=== PATIENT | female | born 1955 | race Two or more races ===

== ENCOUNTER → 2024-08-21 | Outpatient (CLI) | payer MEDICARE, MEDICAID, SELFPAY ==
--- NOTE | 2024-08-21 14:30 | XR_ITS ---
Examination: CT abdomen and pelvis without contrast. Coronal 3-D reconstructions. Sagittal 2-D reconstructions. Date and time of exam:August 21, 2024 1325 hours Comparison February 23, 2023 INDICATIONS: History flank pain kidney stones urinary tract infections beginning 2 years ago CTDI: vol (mGy): 9.49 DLP: (mGycm): 509 Technique: Axial images of the abdomen have been obtained, 3 mm slice thickness Intravenous contrast material has not been administered. Low dose protocols were performed. One or more of the following dose reduction techniques were used; automated exposure control, adjustment of the mA and/or KV according to patient size, use of iterative reconstruction technique. Findings: No focal liver or splenic lesion Gallbladder not visualized Again noted 25 mm hypodense mass body of the pancreas Mild enlargement left adrenal gland Mild to moderate bilateral renal parenchymal scar formation 2 mm mid to lower pole right renal calculus 20 mm right renal cyst with tiny calcification in the wall of the cyst No hydronephrosis or ureteral calculi No pericecal inflammatory change No bowel obstruction Mildly fluid distended small bowel loops Atrophic uterus No bladder mass or bladder calculi Prominent osteopenia IMPRESSION: 25 mm hypodense mass body the pancreas, recommend MRI abdomen pancreas follow-up pre and postcontrast Mild to moderate bilateral renal parenchymal scar formation, no hydronephrosis or ureteral calculi
== END | disposition home or self-care (01) ==
LOC: CCTX 12:55
PROVIDERS: Referring Provider Urology; Visit Provider Urology
DX: R19.09 Other intra-abdominal and pelvic swelling, mass and lump (principal); N28.89 Other specified disorders of kidney and ureter
CPT/HCPCS: 74176

== ENCOUNTER → 2024-08-27 | Outpatient (BNVA) | payer MEDICARE, MEDICAID, SELFPAY | END | disposition home or self-care (01) | PROVIDERS: PCP Nurse Practitioner Family; Referring Provider Nurse Practitioner Family; Visit Provider Urology | DX: N35.92 Unspecified urethral stricture, female (principal); D41.4 Neoplasm of uncertain behavior of bladder; R10.2 Pelvic and perineal pain; Z87.440 Personal history of urinary (tract) infections; I10 Essential (primary) hypertension; E78.00 Pure hypercholesterolemia, unspecified; E11.9 Type 2 diabetes mellitus without complications; E03.9 Hypothyroidism, unspecified; N28.1 Cyst of kidney, acquired | CPT/HCPCS: 52214; 81003; 96372; A4217; A4649; C1894; J1580; A9270 ==

== ENCOUNTER → 2024-10-30 | Outpatient (CLI) | payer MEDICARE, MEDICAID, SELFPAY ==
--- NOTE | 2024-10-30 08:30 | XR_ITS ---
Examination: MRI abdomen with intravenous contrast. MRI abdomen without intravenous contrast. Date and time of exam: October 30, 2024 0920 hours INDICATIONS: CT abdomen study August 21, 2024 25 mm hypodense mass body of the pancreas mild enlargement left adrenal gland 2 mm mid to lower pole right renal calculus Technique: Multiple axial, sagittal and coronal sections of the abdomen obtained. Transverse images, TR 6020, TE 107. T1 weighted transverse images, TR 582, TE 9.5. T2-weighted sagittal images, TR 4000, TE 105. T2-weighted sagittal images, TR 4000, TE 5. Coronal images, TR 4210, TE 107. Axial and coronal images are obtained post 19 cc intravenous injection, gadolinium. Findings: No focal liver lesions Absent gallbladder Common hepatic duct 10 mm Spleen is not enlarged Nonenhancing cystic mass in the body of the pancreas, 29 x 22 mm No ascites No hydronephrosis Bilateral renal cysts, the cyst in the posterior lateral margin left kidney has irregular margins measuring 15 mm without enhancement Aorta normal size IMPRESSION: Nonenhancing cystic mass body of the pancreas, 29 x 22 mm Recommend renal sonography repeat follow-up to confirm benign 15 mm cyst lateral margin left kidney
== END | disposition home or self-care (01) ==
PROVIDERS: PCP Urology; Referring Provider Urology; Visit Provider Urology
DX: K86.9 Disease of pancreas, unspecified (principal)
CPT/HCPCS: 74183; A9579

== ENCOUNTER 2025-06-24 08:30 | Day surgery (SDC) | payer MEDICARE, MEDICAID, SELFPAY ==
[2025-06-24] VITALS (8 sets, daily range): BP systolic 115–153; BP diastolic 70–80; PULSE 64–78; RESP 15–20; TEMP 36.6–37.2; O2SAT 93–97; BMI 27.7
[2025-06-24] MEDS: BENZOCAINE 20% (Hurricaine) SPRAY 1 DOSE TOP (10:57)
[2025-06-24] MEDS: MIDAZOLAM INJ 1 MG/ML VIAL 2 ML (ASD USE ONLY) 2 MG IVP (10:58)
[2025-06-24] MEDS: RINGERS LACTATED 500 ML 500 ML 20 ML IV (10:59)
[2025-06-24] MEDS: fentaNYL CIT INJ 50 mCg/ML AMP 2ML (ASD USE ONLY) IVP (10:59)
== END 2025-06-24 11:40 | disposition home or self-care (01) ==
PROVIDERS: PCP Nurse Practitioner Primary Care; Referring Provider Internal Medicine Gastroenterology; Visit Provider Internal Medicine Gastroenterology
PROC: (CPT 43239; principal; 2025-06-24 13:30)
DX: K29.50 Unspecified chronic gastritis without bleeding (principal); I10 Essential (primary) hypertension; K44.9 Diaphragmatic hernia without obstruction or gangrene
CPT/HCPCS: 43239; A4649; J1200; J2250; J3010; J7120; A9270

== ENCOUNTER 2025-06-26 08:33 | Day surgery (SDC) | payer MEDICARE, MEDICAID, SELFPAY ==
[2025-06-26] VITALS (12 sets, daily range): BP systolic 99–157; BP diastolic 56–99; PULSE 60–97; RESP 14–22; TEMP 36.8; O2SAT 95–100; BMI 25.3
[2025-06-26] MEDS: DEXTROSE 5%-WATER 500 ML 20 ML IV (10:31)
[2025-06-26] MEDS: MIDAZOLAM INJ 1 MG/ML VIAL 2 ML (ASD USE ONLY) 2 MG IVP ×2 (10:31→10:56)
[2025-06-26] MEDS: fentaNYL CIT INJ 50 mCg/ML AMP 2ML (ASD USE ONLY) IVP ×2 (10:31→10:56)
[2025-06-26] MEDS: SIMETHICONE 40 MG/0.6 ML ORAL SYRINGE 80 MG PO (10:40)
== END 2025-06-26 11:40 | disposition home or self-care (01) ==
PROVIDERS: PCP Nurse Practitioner Primary Care; Referring Provider Internal Medicine Gastroenterology; Visit Provider Internal Medicine Gastroenterology
PROC: 0DBE8ZX Excision of Large Intestine, Via Natural or Artificial Opening Endoscopic, Diagnostic (ICD-10-PCS; CPT 45380; principal; 2025-06-26 11:15)
DX: D12.5 Benign neoplasm of sigmoid colon (principal); D12.2 Benign neoplasm of ascending colon; K64.9 Unspecified hemorrhoids; K57.30 Diverticulosis of large intestine without perforation or abscess without bleeding; I10 Essential (primary) hypertension; E88.810 Metabolic syndrome
CPT/HCPCS: 45385; 45380; A4649; J1200; J2250; J3010; J7060; A9270

== ENCOUNTER 2025-08-19 10:15 | Day surgery (SDC) | payer MEDICARE, MEDICAID, SELFPAY ==
[2025-08-19] VITALS (13 sets, daily range): BP systolic 84–138; BP diastolic 40–74; PULSE 69–81; RESP 11–30; TEMP 36.2–36.6; O2SAT 93–100; BMI 25.4
[2025-08-19] MEDS: DEXTROSE 5%-WATER 500 ML 50 ML IV (10:15)
[2025-08-19] MEDS: RINGERS LACTATED 1000 ML 1,000 ML 125 ML IV (11:48)
[2025-08-19] MEDS: MIDAZOLAM INJ 1 MG/ML VIAL 2 ML (ASD USE ONLY) IVP (12:20)
[2025-08-19] MEDS: fentaNYL CIT INJ 50 mCg/ML AMP 2ML (ASD USE ONLY) IVP (12:20)
[2025-08-19] MEDS: LIDOCAINE JELLY 2% (Urojet) 10 ML TUBE TOP (12:27)
== END 2025-08-19 13:17 | disposition home or self-care (01) ==
PROVIDERS: PCP Nurse Practitioner Family; Referring Provider Internal Medicine Gastroenterology; Visit Provider Internal Medicine Gastroenterology
PROC: 0DBE8ZX Excision of Large Intestine, Via Natural or Artificial Opening Endoscopic, Diagnostic (ICD-10-PCS; CPT 45380; principal; 2025-08-19 12:15)
DX: K64.3 Fourth degree hemorrhoids (principal); K52.9 Noninfective gastroenteritis and colitis, unspecified; I10 Essential (primary) hypertension; K57.30 Diverticulosis of large intestine without perforation or abscess without bleeding; E88.810 Metabolic syndrome; E78.5 Hyperlipidemia, unspecified; E11.9 Type 2 diabetes mellitus without complications
CPT/HCPCS: 45380; 45398; A4217; A4649; J2250; J3010; J7060; J7120